=== PATIENT | female | born 1985 | race Caucasian/White ===

== ENCOUNTER 2018-05-05 11:05 | Emergency (ER) | payer MEDICAID ==
[~2018-05-05] VITALS: Ht 170.2 cm; Wt 149.6 kg
[2018-05-05] MEDS ORDERED: HYDROcodone/APAP 5/325 TABLET ONE (12:15)
[2018-05-05] MEDS ORDERED: LIDOCAINE-MPF 1%, 5ML ONE ×2 (12:15→15:16)
[2018-05-05] MEDS ORDERED: HYDROcodone/APAP 5/325 TABLET PO ONE (12:30)
[2018-05-05 12:58] LABS: BASOPHILS # (AUTO) 0.06 x10^3/uL (0-0.1); BASOPHILS % (AUTO) 1 % (0-1); EOSINOPHILS # (AUTO) 0.39 x10^3/uL (0-0.4); EOSINOPHILS % (AUTO) 4 % (1-7); LYMPHOCYTES # (AUTO) 1.63 x10^3/uL (1-3.4); LYMPHOCYTES % (AUTO) 15 % (22-44); MD NO; MEAN CORPUSCULAR HEMOGLOBIN 28.6 pg (27.0-34.8); MEAN CORPUSCULAR HGB CONC 33.3 g/dL (32.4-35.8); MEAN CORPUSCULAR VOLUME 85.9 fL (80-100); MONOCYTES # (AUTO) 0.86 x10^3/uL (0.2-0.8); MONOCYTES % (AUTO) 8 % (2-9); NEUTROPHILS # (AUTO) 7.94 x10^3/uL (1.8-6.8); NEUTROPHILS % (AUTO) 73 % (42-75); PLATELET COUNT 281 x10^3/uL (130-400); RED BLOOD COUNT 4.64 x10^6/uL (3.82-5.3); RED CELL DISTRIBUTION WIDTH 12.6 % (9.6-15.2)
--- NOTE | 2018-05-05 14:19 | NUR ---
PT TO BE MOVED TO ANOTHER ROOM FOR PROCEDURAL SEDATION AFTER PT OPTED OUT HAVING I+D WITHOUT SEDATION. PT ORIGINALLY REQUESTED TO BE ADMITTED AND HAVE IV ANTIBIOTICS SO INFECTION DOES NOT GET WORSE.
[2018-05-05] MEDS ORDERED: PROPOFOL 10 MG/ML, 20ML ONE (15:16)
[2018-05-05] MEDS ORDERED: FENTANYL PF 100 MCG/2ML ONE (15:24)
--- NOTE | 2018-05-05 15:30 | NUR ---
time out at this time, see papercharting for intraprocedural details
--- NOTE | 2018-05-05 15:45 | NUR ---
procedure completed w/o complication
[2018-05-05] MEDS ORDERED: PROPOFOL 10 MG/ML, 20ML IVPush ONE (16:30)
[2018-05-05] MEDS ORDERED: FENTANYL PF 100 MCG/2ML IV ONE (16:30)
[2018-05-05 16:37] VITALS: BP 120/58
== END 2018-05-05 16:39 | disposition home or self-care (01) ==
LOC: ED 13:41
DX: L73.2 Hidradenitis suppurativa (principal)
CPT/HCPCS: 10060; 36415; 76882; 85025; 99152; 99285; J2704; J3010